=== PATIENT | female | born 1990 | race Caucasian/White ===

== ENCOUNTER 2017-09-28 19:02 | Emergency (ER) | payer MEDICAID ==
[~2017-09-28] VITALS: Ht 157.5 cm; Wt 47.7 kg
[~2017-09-28 19:02] MED LIST: ALBU6.7H INH; AZIT250T PO; BACK1EAC9; CEPH-571 PO; CLIN-79 PO; CLIN-80 PO; CYCL-1 PO; HYDR-569 PO; LIDO20SO PO; METH4TAB3 PO; METH500T PO; NAPR-1144 PO; NAPR-1154 PO; NO HOME MEDS; PHEN-824 PO; SILV20CR13 TP; [UNRECOGNIZED DRUG - CODE] PO
[2017-09-28 19:11] VITALS: BP 112/54
== END 2017-09-28 20:23 | disposition home or self-care (01) ==
LOC: ER 19:02
DX: K08.89 Other specified disorders of teeth and supporting structures (principal); G89.29 Other chronic pain; F12.10 Cannabis abuse, uncomplicated; Z88.0 Allergy status to penicillin; Z79.899 Other long term (current) drug therapy
CPT/HCPCS: 99281

== ENCOUNTER 2017-10-27 18:01 | Emergency (ER) | payer MEDICAID ==
[~2017-10-27] VITALS: Ht 157.5 cm; Wt 43.5 kg
[~2017-10-27 18:01] MED LIST changes: +NITR100C6 PO; +ONDA8TAB9 PO
[2017-10-27 18:46] VITALS: BP 153/58
[2017-10-27 19:06] LABS: BASOPHILS % (AUTO) 0.4 % (0-1); EOSINOPHILS # (AUTO) 0.2 X10'3 (0-0.9); EOSINOPHILS % (AUTO) 2.4 % (0-6); HEMATOCRIT 36.7 % (35.0-45.0); HEMOGLOBIN 12.5 g/dl (12.0-16.0); LYMPHOCYTES # (AUTO) 3.5 X10'3 (1.1-4.8); LYMPHOCYTES % (AUTO) 36.6 % (21-51); MEAN CORPUSCULAR HEMOGLOBIN 30.6 PG (27.0-31.0); MEAN CORPUSCULAR VOLUME 89.9 FL (78-98); MONOCYTES # (AUTO) 0.6 X10'3 (0-0.9); NEUTROPHILS # (AUTO) 5.2 X10'3 (1.8-7.7); NEUTROPHILS % (AUTO) 54.6 % (42-75); PLATELET COUNT 265 X10'3 (140-440); RED BLOOD COUNT 4.09 X10'6 (4.20-5.60); WHITE BLOOD COUNT 9.5 X10'3 (4.5-11.0)
[2017-10-27 19:11] LABS: CLARITY,URINE SLIGHTLY CLOUDY (Clear); COLOR,URINE YELLOW (Yellow); GLUCOSE, URINE NEGATIVE (Neg); KETONES,URINE NEGATIVE (Neg); LEUKOCYTE ESTERASE ,URINE NEGATIVE (Neg); NITRITES, URINE NEGATIVE (Neg); OCCULT BLOOD,URINE NEGATIVE (Neg); PH,URINE 7.5 (4.8-8.0); PROTEIN,URINE NEGATIVE (Neg); UROBILINOGEN,URINE 0.2 E.U/dL (0.2-1.0)
[2017-10-27 19:17] LABS: PROTHROMBIN TIME 10.7 SECONDS (9.0-12.0)
[2017-10-27 19:19] LABS: URINE HCG NEGATIVE (NEG)
[2017-10-27 19:29] LABS: UA COLLECTION TYPE CLN CATCH MIDSTREAM
[2017-10-27 19:31] LABS: AMORPHOUS PHOSPHATES 2+; BACTERIA,URINE NONE SEEN /HPF (Neg); RBC,URINE NONE SEEN /HPF (0-2); SQUAMOUS EPITHELIAL CELL,UR NONE SEEN /LPF (FEW); WBC,URINE NONE SEEN /HPF (0-4)
[2017-10-27 19:31] LABS: ALANINE AMINOTRANSFERASE 21 U/L (12-78); ALBUMIN/GLOBULIN RATIO 1.2 (1.1-1.5); ALKALINE PHOSPHATASE 43 IU/L (46-116); ANION GAP 8 (8-16); ASPARTATE AMINO TRANSFERASE 13 U/L (10-37); BILIRUBIN,TOTAL 0.2 MG/DL (0.1-1.0); BLOOD UREA NITROGEN 12 MG/DL (7-18); BUN/CREATININE RATIO 21.1 (6.6-38.0); CALCIUM 9.2 MG/DL (8.5-10.1); CHLORIDE 104 MMOL/L (99-107); CREATININE 0.57 MG/DL (0.40-0.90); GLUCOSE 91 MG/DL (70-104); LIPASE 214 U/L (73-393); SODIUM 139 MMOL/L (135-145); TOTAL CARBON DIOXIDE 26.8 MMOL/L (24-32); TOTAL PROTEIN 7.3 G/DL (6.4-8.2); eGFR > 90 ML/MIN
== END 2017-10-27 20:11 | disposition left against medical advice (07) ==
LOC: ER 18:01
DX: R10.9 Unspecified abdominal pain (principal); R11.10 Vomiting, unspecified; Z53.21 Procedure and treatment not carried out due to patient leaving prior to being seen by health care provider
CPT/HCPCS: 36415; 80053; 81001; 81025; 83690; 85025; 85610; 99281

== ENCOUNTER 2018-01-10 15:00 | Emergency (ER) | payer MEDICAID ==
[~2018-01-10] VITALS: Ht 160 cm; Wt 46.1 kg
[~2018-01-10 15:00] MED LIST changes: -CLIN-79 PO; -CLIN-80 PO; +CLIN150C8 PO; +CLIN300C85 PO
[2018-01-10 15:08] VITALS: BP 131/78
[2018-01-10] MEDS ORDERED: ACET-2615 PO (15:23)
[2018-01-10] MEDS ORDERED: GABA800T2 PO (15:23)
== END 2018-01-10 15:36 | disposition home or self-care (01) ==
LOC: ER 15:03
DX: G89.29 Other chronic pain (principal); F12.90 Cannabis use, unspecified, uncomplicated; Z76.0 Encounter for issue of repeat prescription; Z98.890 Other specified postprocedural states; Z88.0 Allergy status to penicillin; Z79.2 Long term (current) use of antibiotics; Z79.899 Other long term (current) drug therapy
CPT/HCPCS: 99283

== ENCOUNTER 2018-01-27 14:07 | Emergency (ER) | payer MEDICAID ==
[~2018-01-27] VITALS: Ht 552.4 cm; Wt 48.0 kg
[~2018-01-27 14:07] MED LIST changes: +ACET-2615 PO; +GABA800T2 PO
[2018-01-27] MEDS ORDERED: HYDROcodone/acetaminophen 5mg/325mg tablet PO ONE (14:15)
[2018-01-27] MEDS ORDERED: CEPH-571 PO (14:15)
[2018-01-27 14:23] VITALS: BP 135/84
== END 2018-01-27 14:25 | disposition home or self-care (01) ==
LOC: ER 14:07
DX: S02.5XXA Fracture of tooth (traumatic), initial encounter for closed fracture (principal); G89.29 Other chronic pain; F12.90 Cannabis use, unspecified, uncomplicated; Z88.0 Allergy status to penicillin; Z79.899 Other long term (current) drug therapy; X58.XXXA Exposure to other specified factors, initial encounter; Y93.89 Activity, other specified; Y92.89 Other specified places as the place of occurrence of the external cause; Y99.8 Other external cause status
CPT/HCPCS: 99283

== ENCOUNTER 2018-03-25 15:22 | Emergency (ER) | payer MEDICAID ==
[~2018-03-25] VITALS: Ht 157.5 cm; Wt 48.0 kg
[~2018-03-25 15:22] MED LIST changes: -ACET-2615 PO; +HYDR-4383 PO; -HYDR-569 PO
[2018-03-25 15:27] VITALS: BP 125/76
[2018-03-25] MEDS ORDERED: HYDR-4353 PO (16:10)
== END 2018-03-25 16:32 | disposition home or self-care (01) ==
LOC: ER 15:23
DX: K08.89 Other specified disorders of teeth and supporting structures (principal); R22.9 Localized swelling, mass and lump, unspecified; G89.29 Other chronic pain; F41.9 Anxiety disorder, unspecified; F12.10 Cannabis abuse, uncomplicated; Z87.440 Personal history of urinary (tract) infections; Z88.0 Allergy status to penicillin; Z79.899 Other long term (current) drug therapy
CPT/HCPCS: 99283

== ENCOUNTER 2018-06-08 15:21 | Emergency (ER) | payer MEDICAID, OTHER ==
[~2018-06-08] VITALS: Ht 157.5 cm; Wt 51.1 kg
[~2018-06-08 15:21] MED LIST changes: -GABA800T2 PO; +GABA800T3 PO
[2018-06-08 15:35] VITALS: BP 121/85
[2018-06-08] MEDS ORDERED: HYDR-4383 PO (15:53)
[2018-06-08] MEDS ORDERED: CLIN150C2 PO (15:53)
--- NOTE | 2018-06-08 16:13 | NUR ---
seen and dc'd by provider
== END 2018-06-08 16:14 | disposition home or self-care (01) ==
LOC: ER 15:21
DX: S02.5XXA Fracture of tooth (traumatic), initial encounter for closed fracture (principal); F41.9 Anxiety disorder, unspecified; G89.29 Other chronic pain; F12.10 Cannabis abuse, uncomplicated; Z87.440 Personal history of urinary (tract) infections; Z88.0 Allergy status to penicillin; Z79.2 Long term (current) use of antibiotics; X58.XXXA Exposure to other specified factors, initial encounter; Y93.89 Activity, other specified; Y92.89 Other specified places as the place of occurrence of the external cause; Y99.8 Other external cause status
CPT/HCPCS: 99283

== ENCOUNTER 2019-03-15 18:02 | Emergency (ER) | payer MEDICAID ==
[~2019-03-15] VITALS: Ht 160 cm; Wt 59.0 kg
[~2019-03-15 18:02] MED LIST changes: -ALBU6.7H INH; +ALBU6.7H9 INH; +CLIN-90 PO; -CLIN300C85 PO; +GABA800T11 PO; -GABA800T3 PO
[2019-03-15 18:32] LABS: CLARITY,URINE CLEAR (Clear); COLOR,URINE STRAW (Yellow); GLUCOSE, URINE NEGATIVE (Neg); KETONES,URINE NEGATIVE (Neg); LEUKOCYTE ESTERASE ,URINE NEGATIVE (Neg); NITRITES, URINE NEGATIVE (Neg); OCCULT BLOOD,URINE NEGATIVE (Neg); PROTEIN,URINE NEGATIVE (Neg); UROBILINOGEN,URINE 0.2 E.U/dL (0.2-1.0)
[2019-03-15 18:34] LABS: UA COLLECTION TYPE CLN CATCH MIDSTREAM; URINE HCG NEGATIVE (NEG)
[2019-03-15 18:39] LABS: BASOPHILS # (AUTO) 0.1 X10'3 (0-0.2); BASOPHILS % (AUTO) 0.8 % (0-1); EOSINOPHILS # (AUTO) 0.2 X10'3 (0-0.9); EOSINOPHILS % (AUTO) 2.4 % (0-6); HEMATOCRIT 38.4 % (35.0-45.0); HEMOGLOBIN 13.1 g/dl (12.0-16.0); LYMPHOCYTES # (AUTO) 2.2 X10'3 (1.1-4.8); MEAN CORPUSCULAR HEMOGLOBIN 30.5 PG (27.0-31.0); MEAN CORPUSCULAR VOLUME 89.7 FL (78-98); MEAN PLATELET VOLUME 8.5 FL (7.4-10.4); MONOCYTES # (AUTO) 0.4 X10'3 (0-0.9); MONOCYTES % (AUTO) 5.4 % (2-12); NEUTROPHILS # (AUTO) 5.3 X10'3 (1.8-7.7); NEUTROPHILS % (AUTO) 64.4 % (42-75); PLATELET COUNT 255 X10'3 (140-440); RED BLOOD COUNT 4.29 X10'6 (4.20-5.60); RED CELL DISTRIBUTION WIDTH 12.8 % (11.5-14.5); WHITE BLOOD COUNT 8.3 X10'3 (4.5-11.0)
[2019-03-15 18:55] LABS: ALANINE AMINOTRANSFERASE 21 U/L (12-78); ALBUMIN 3.9 G/DL (3.4-5.0); ALBUMIN/GLOBULIN RATIO 1.1 (1.1-1.5); ALKALINE PHOSPHATASE 57 IU/L (46-116); ANION GAP 9 (8-16); ASPARTATE AMINO TRANSFERASE 15 U/L (10-37); BILIRUBIN,TOTAL 0.2 MG/DL (0.1-1.0); BLOOD UREA NITROGEN 14 MG/DL (7-18); BUN/CREATININE RATIO 19.7 (6.6-38.0); CHLORIDE 107 MMOL/L (99-107); CREATININE 0.71 MG/DL (0.40-0.90); GLUCOSE 91 MG/DL (70-104); POTASSIUM 3.9 MMOL/L (3.5-5.1); SODIUM 143 MMOL/L (135-145); TOTAL CARBON DIOXIDE 26.8 MMOL/L (24-32); TOTAL PROTEIN 7.5 G/DL (6.4-8.2); eGFR > 90 ML/MIN
[2019-03-15] MEDS ORDERED: ketorolac trometh inj. 60 MG/2 ML VIAL IM ONE (20:15)
[2019-03-15] MEDS ORDERED: CYCL-1 PO (20:24)
--- NOTE | 2019-03-15 20:50 | NUR ---
PT HAS MEDS ORDERED THEN DC. PT WITH MANY QUESTIONS ABOUT THE FLEXERIL PERSCRIPTION AND TORADOL INJECTION THAT IS ORDERED. PT WILL NEED TO SPEAK WITH PROVIDER PRIOR TO GETTING THE ORDERED MEDS. Anayeli SHELTON UPDATED AND WILL SEE HER SHORTLY.
--- NOTE | 2019-03-15 20:59 | NUR ---
ATTEMPTED TO GIVE PATIENT HER TORADOL INSTRUCTIONS IN REGARDS TO HER LUMBAR STRAIN . PT VERY DEMANDING NOT LISTEN TO THE USES AND EXPLANATIONS OF THE MEDICATION. PT ASKING IOF THE MEDICATION COULD BE USED WHILE SHE WORKS OUT AND GOES TO [employer]. PT OVERTALKING THE EXPLANATIONS OF COPMMOM USES THE TIME OF DAY WHEN THE MEDICINE SHOUILD BE TAKEN , ETC. SHOWED THE PATIENT THE DISCHARGED INSTRUCTIONS AND THE WRITTEN INFORMATION ON THE PRESCRIPTION OF FLEXERIL SHE WAS BEING DISCHARGED HOME ON . PT ASKED TO SPEAK TO ABEL TORRES " YOU ARE NOT CREDITABLE AND YOU WILL NOT ANSWER MY QUESTION " ABEL TORRES TO SPEAK WITH PT REGARDING THE MEDICAINE. PT DECLINED THE TORADOL SHOT AND STATED SHE WILL FILL HER SCRIPT AND REST AT HOME .
[2019-03-15 21:04] VITALS: BP 128/72
== END 2019-03-15 20:55 | disposition home or self-care (01) ==
LOC: ER 18:03
DX: S39.012A Strain of muscle, fascia and tendon of lower back, initial encounter (principal); M62.830 Muscle spasm of back; G89.29 Other chronic pain; F12.90 Cannabis use, unspecified, uncomplicated; Z98.890 Other specified postprocedural states; Z88.0 Allergy status to penicillin; Z79.899 Other long term (current) drug therapy; X50.1XXA Overexertion from prolonged static or awkward postures, initial encounter; Y93.89 Activity, other specified; Y92.89 Other specified places as the place of occurrence of the external cause; Y99.9 Unspecified external cause status
CPT/HCPCS: 36415; 80053; 81003; 81025; 85025; 99283; J1885

== ENCOUNTER 2019-04-18 15:18 | Emergency (ER) | payer MEDICAID ==
[~2019-04-18] VITALS: Ht 160 cm; Wt 54.0 kg
[2019-04-18 15:32] VITALS: BP 128/60
[2019-04-18] MEDS ORDERED: TRAM50TA2 PO (16:56)
[2019-04-18] MEDS ORDERED: HYDR-4383 PO (17:14)
[2019-04-18] MEDS ORDERED: IBUP-1984 PO (17:14)
== END 2019-04-18 17:23 | disposition home or self-care (01) ==
LOC: ER 15:18
DX: S02.5XXA Fracture of tooth (traumatic), initial encounter for closed fracture (principal); G89.29 Other chronic pain; F41.9 Anxiety disorder, unspecified; F15.90 Other stimulant use, unspecified, uncomplicated; Z88.0 Allergy status to penicillin; Z88.6 Allergy status to analgesic agent; Z79.2 Long term (current) use of antibiotics; Z79.899 Other long term (current) drug therapy; Z87.19 Personal history of other diseases of the digestive system; Z87.440 Personal history of urinary (tract) infections; Z98.890 Other specified postprocedural states; X58.XXXA Exposure to other specified factors, initial encounter; Y93.89 Activity, other specified; Y92.89 Other specified places as the place of occurrence of the external cause; Y99.8 Other external cause status
CPT/HCPCS: 99283

== ENCOUNTER 2019-06-14 14:10 | Emergency (ER) | payer MEDICAID, OTHER ==
[~2019-06-14] VITALS: Ht 157.5 cm; Wt 50.5 kg
[2019-06-14 14:22] VITALS: BP 122/77
[2019-06-14] MEDS ORDERED: ketorolac trometh inj. 60 MG/2 ML VIAL IM ONE (15:00)
[2019-06-14] MEDS ORDERED: IBUP-1985 PO (15:03)
[2019-06-14] MEDS ORDERED: ondansetron 4mg rapidly disintigrating tab PO ONE (15:10)
[2019-06-14] MEDS ORDERED: HYDROcodone/acetaminophen 5mg/325mg tablet PO ONE (15:10)
== END 2019-06-14 15:33 | disposition home or self-care (01) ==
LOC: ER 14:11
DX: S59.902A Unspecified injury of left elbow, initial encounter (principal); F12.90 Cannabis use, unspecified, uncomplicated; G89.29 Other chronic pain; Z98.890 Other specified postprocedural states; Z79.899 Other long term (current) drug therapy; Z88.0 Allergy status to penicillin; Z88.6 Allergy status to analgesic agent; Z88.8 Allergy status to other drugs, medicaments and biological substances; W01.0XXA Fall on same level from slipping, tripping and stumbling without subsequent striking against object, initial encounter; Y93.89 Activity, other specified; Y92.89 Other specified places as the place of occurrence of the external cause; Y99.9 Unspecified external cause status
CPT/HCPCS: 73080; 99283

== ENCOUNTER 2019-06-20 09:31 | Emergency (ER) | payer OTHER ==
[~2019-06-20] VITALS: Ht 157.5 cm; Wt 49.0 kg
[~2019-06-20 09:31] MED LIST changes: +IBUP-1985 PO
[2019-06-20] MEDS ORDERED: HYDROcodone/acetaminophen 5mg/325mg tablet PO ONE (10:15)
[2019-06-20] MEDS ORDERED: CHLO473M3 PO (10:23)
[2019-06-20] MEDS ORDERED: CLIN150C2 PO (10:23)
[2019-06-20] MEDS ORDERED: L. R1CAP4 PO (10:23)
[2019-06-20] MEDS ORDERED: ondansetron 4mg rapidly disintigrating tab PO ONE (10:25)
[2019-06-20 10:33] VITALS: BP 115/82
== END 2019-06-20 10:35 | disposition home or self-care (01) ==
LOC: ER 09:32
DX: K08.89 Other specified disorders of teeth and supporting structures (principal); R19.6 Halitosis; G89.29 Other chronic pain; F12.90 Cannabis use, unspecified, uncomplicated; Z98.890 Other specified postprocedural states; Z88.0 Allergy status to penicillin; Z88.6 Allergy status to analgesic agent; Z79.899 Other long term (current) drug therapy
CPT/HCPCS: 99283

== ENCOUNTER 2019-11-03 10:42 | Emergency (ER) | payer OTHER ==
[~2019-11-03] VITALS: Ht 157.5 cm; Wt 45.0 kg
[~2019-11-03 10:42] MED LIST changes: +CHLO473M3 PO; -CLIN-90 PO; +CLIN-97 PO; +L. R1CAP4 PO
[2019-11-03 11:23] LABS: BASOPHILS % (AUTO) 0.3 % (0-1); EOSINOPHILS % (AUTO) 0.1 % (0-6); HEMATOCRIT 41.4 % (35.0-45.0); HEMOGLOBIN 13.8 g/dl (12.0-16.0); LYMPHOCYTES # (AUTO) 1.1 X10'3 (1.1-4.8); LYMPHOCYTES % (AUTO) 10.4 % (21-51); MEAN CORPUSCULAR HEMOGLOBIN 29.8 PG (27.0-31.0); MEAN CORPUSCULAR HGB CONC 33.2 g/dL (33.0-36.5); MEAN CORPUSCULAR VOLUME 89.7 FL (78-98); MEAN PLATELET VOLUME 8.4 FL (7.4-10.4); MONOCYTES # (AUTO) 0.2 X10'3 (0-0.9); MONOCYTES % (AUTO) 1.9 % (2-12); NEUTROPHILS # (AUTO) 8.9 X10'3 (1.8-7.7); NEUTROPHILS % (AUTO) 87.3 % (42-75); PLATELET COUNT 295 X10'3 (140-440); RED BLOOD COUNT 4.62 X10'6 (4.20-5.60); WHITE BLOOD COUNT 10.2 X10'3 (4.5-11.0)
[2019-11-03] MEDS ORDERED: normal saline 1000ml 1,000 ML IV ONE (11:25)
[2019-11-03 11:42] LABS: ALANINE AMINOTRANSFERASE 22 U/L (12-78); ALBUMIN 4.2 G/DL (3.4-5.0); ALBUMIN/GLOBULIN RATIO 1.3 (1.1-1.5); ALKALINE PHOSPHATASE 49 IU/L (46-116); ANION GAP 12 (8-16); ASPARTATE AMINO TRANSFERASE 16 U/L (10-37); BILIRUBIN,TOTAL 0.6 MG/DL (0.1-1.0); BLOOD UREA NITROGEN 12 MG/DL (7-18); BUN/CREATININE RATIO 16.7 (6.6-38.0); CHLORIDE 106 MMOL/L (99-107); CREATININE 0.72 MG/DL (0.40-0.90); GLUCOSE 128 MG/DL (70-104); LIPASE 71 U/L (73-393); POTASSIUM 3.9 MMOL/L (3.5-5.1); SODIUM 141 MMOL/L (135-145); TOTAL CARBON DIOXIDE 23.4 MMOL/L (24-32); TOTAL PROTEIN 7.5 G/DL (6.4-8.2); eGFR > 90 ML/MIN
[2019-11-03] MEDS ORDERED: haloperidol lactate 5mg/ml inj IM ONE (11:45)
[2019-11-03] MEDS ORDERED: diphenhydrAMINE 50 mg/ml inj IV ONE (11:45)
[2019-11-03] MEDS ORDERED: LORazepam 2 mg/ml vial IV ONE (11:45)
[2019-11-03] MEDS ORDERED: ondansetron/PF 4mg/2ml inj IV ONE (11:45)
[2019-11-03 13:11] LABS: CLARITY,URINE CLOUDY (Clear); COLOR,URINE YELLOW (Yellow); GLUCOSE, URINE NEGATIVE (Neg); KETONES,URINE 40 mg/dl (Neg); LEUKOCYTE ESTERASE ,URINE NEGATIVE (Neg); NITRITES, URINE NEGATIVE (Neg); OCCULT BLOOD,URINE TRACE-INTACT (Neg); PH,URINE 6.5 (4.8-8.0); PROTEIN,URINE 100 mg/dl (Neg); UROBILINOGEN,URINE 0.2 E.U/dL (0.2-1.0)
[2019-11-03 13:12] LABS: URINE HCG NEGATIVE (NEG)
[2019-11-03 13:13] LABS: UA COLLECTION TYPE CLN CATCH MIDSTREAM
[2019-11-03 13:16] LABS: MUCUS STRANDS MANY /LPF (Neg); SQUAMOUS EPITHELIAL CELL,UR MANY /LPF (FEW)
[2019-11-03 13:17] LABS: BACTERIA,URINE 1+ /HPF (Neg); RBC,URINE 0-2 /HPF (0-2); WBC,URINE 0-4 /HPF (0-4)
[2019-11-03 14:26] VITALS: BP 106/61
== END 2019-11-03 14:29 | disposition home or self-care (01) ==
LOC: ER 10:43
DX: R11.15 Cyclical vomiting syndrome unrelated to migraine (principal); R10.84 Generalized abdominal pain; R11.2 Nausea with vomiting, unspecified; G89.29 Other chronic pain; F41.9 Anxiety disorder, unspecified; F12.90 Cannabis use, unspecified, uncomplicated; Z87.440 Personal history of urinary (tract) infections; Z79.899 Other long term (current) drug therapy; Z88.6 Allergy status to analgesic agent; Z88.0 Allergy status to penicillin; Z79.2 Long term (current) use of antibiotics
CPT/HCPCS: 36415; 80053; 81001; 81025; 83690; 85025; 96361; 96372; 96374; 96375; 99284; J1200; J1630; J2060; J2405; J7030

== ENCOUNTER 2019-11-27 19:22 | Emergency (ER) | payer OTHER ==
[~2019-11-27] VITALS: Ht 154.9 cm; Wt 50.0 kg
[2019-11-27 19:26] VITALS: BP 132/81
[2019-11-27 20:20] LABS: BASOPHILS # (AUTO) 0.1 X10'3 (0-0.2); BASOPHILS % (AUTO) 0.6 % (0-1); EOSINOPHILS % (AUTO) 0.3 % (0-6); HEMATOCRIT 40.6 % (35.0-45.0); HEMOGLOBIN 13.8 g/dl (12.0-16.0); LYMPHOCYTES # (AUTO) 2.6 X10'3 (1.1-4.8); LYMPHOCYTES % (AUTO) 25.8 % (21-51); MEAN CORPUSCULAR HEMOGLOBIN 30.8 PG (27.0-31.0); MEAN CORPUSCULAR VOLUME 90.6 FL (78-98); MEAN PLATELET VOLUME 8.6 FL (7.4-10.4); MONOCYTES # (AUTO) 0.8 X10'3 (0-0.9); MONOCYTES % (AUTO) 7.9 % (2-12); NEUTROPHILS # (AUTO) 6.6 X10'3 (1.8-7.7); NEUTROPHILS % (AUTO) 65.4 % (42-75); PLATELET COUNT 291 X10'3 (140-440); RED BLOOD COUNT 4.48 X10'6 (4.20-5.60); RED CELL DISTRIBUTION WIDTH 13.8 % (11.5-14.5); WHITE BLOOD COUNT 10.2 X10'3 (4.5-11.0)
[2019-11-27 20:20] LABS: URINE HCG NEGATIVE (NEG)
[2019-11-27 20:28] LABS: ALANINE AMINOTRANSFERASE 23 U/L (12-78); ALBUMIN 4.1 G/DL (3.4-5.0); ALBUMIN/GLOBULIN RATIO 1.1 (1.1-1.5); ALKALINE PHOSPHATASE 59 IU/L (46-116); ANION GAP 10 (8-16); ASPARTATE AMINO TRANSFERASE 12 U/L (10-37); BILIRUBIN,TOTAL 0.5 MG/DL (0.1-1.0); BLOOD UREA NITROGEN 14 MG/DL (7-18); BUN/CREATININE RATIO 13.2 (6.6-38.0); CALCIUM 9.2 MG/DL (8.5-10.1); CHLORIDE 106 MMOL/L (99-107); CREATININE 1.06 MG/DL (0.40-0.90); GLUCOSE 107 MG/DL (70-104); LIPASE 407 U/L (73-393); SODIUM 142 MMOL/L (135-145); TOTAL CARBON DIOXIDE 25.9 MMOL/L (24-32); TOTAL PROTEIN 7.7 G/DL (6.4-8.2); eGFR 60 ML/MIN
[2019-11-27 20:34] LABS: CLARITY,URINE SLIGHTLY CLOUDY (Clear); COLOR,URINE YELLOW (Yellow); GLUCOSE, URINE NEGATIVE (Neg); KETONES,URINE NEGATIVE (Neg); LEUKOCYTE ESTERASE ,URINE NEGATIVE (Neg); NITRITES, URINE POSITIVE (Neg); OCCULT BLOOD,URINE NEGATIVE (Neg); PH,URINE 6.5 (4.8-8.0); PROTEIN,URINE TRACE mg/dl (Neg)
[2019-11-27 20:37] LABS: UA COLLECTION TYPE CLN CATCH MIDSTREAM
[2019-11-27 22:04] LABS: BACTERIA,URINE 4+ /HPF (Neg); MUCUS STRANDS MANY /LPF (Neg); RBC,URINE NONE SEEN /HPF (0-2); SQUAMOUS EPITHELIAL CELL,UR FEW /LPF (FEW); WBC,URINE 0-4 /HPF (0-4)
== END 2019-11-27 20:20 | disposition left against medical advice (07) ==
LOC: ER 19:24
DX: R10.9 Unspecified abdominal pain (principal); R11.10 Vomiting, unspecified; Z53.21 Procedure and treatment not carried out due to patient leaving prior to being seen by health care provider
CPT/HCPCS: 36415; 80053; 81001; 81025; 83690; 85025; 87077; 87088; 87186

== ENCOUNTER 2020-06-08 21:56 | Emergency (ER) | payer OTHER ==
[~2020-06-08] VITALS: Ht 157.5 cm; Wt 52.3 kg
[2020-06-08 22:41] LABS: CLARITY,URINE CLEAR (Clear); COLOR,URINE YELLOW (Yellow); GLUCOSE, URINE NEGATIVE (Neg); KETONES,URINE NEGATIVE (Neg); LEUKOCYTE ESTERASE ,URINE NEGATIVE (Neg); NITRITES, URINE NEGATIVE (Neg); OCCULT BLOOD,URINE NEGATIVE (Neg); PROTEIN,URINE NEGATIVE (Neg); URINE HCG NEGATIVE (NEG); UROBILINOGEN,URINE 0.2 E.U/dL (0.2-1.0)
[2020-06-08 22:42] LABS: BASOPHILS # (AUTO) 0.1 X10'3 (0-0.2); BASOPHILS % (AUTO) 0.7 % (0-1); EOSINOPHILS # (AUTO) 0.1 X10'3 (0-0.9); EOSINOPHILS % (AUTO) 0.7 % (0-6); HEMATOCRIT 38.1 % (35.0-45.0); HEMOGLOBIN 12.9 g/dl (12.0-16.0); LYMPHOCYTES # (AUTO) 4.2 X10'3 (1.1-4.8); LYMPHOCYTES % (AUTO) 35.3 % (21-51); MEAN CORPUSCULAR HEMOGLOBIN 30.7 PG (27.0-31.0); MEAN CORPUSCULAR HGB CONC 33.8 g/dL (33.0-36.5); MEAN CORPUSCULAR VOLUME 90.9 FL (78-98); MEAN PLATELET VOLUME 8.1 FL (7.4-10.4); MONOCYTES # (AUTO) 0.7 X10'3 (0-0.9); MONOCYTES % (AUTO) 5.5 % (2-12); NEUTROPHILS # (AUTO) 6.8 X10'3 (1.8-7.7); NEUTROPHILS % (AUTO) 57.8 % (42-75); PLATELET COUNT 298 X10'3 (140-440); RED CELL DISTRIBUTION WIDTH 12.8 % (11.5-14.5); WHITE BLOOD COUNT 11.8 X10'3 (4.5-11.0)
[2020-06-08 22:42] LABS: UA COLLECTION TYPE CLN CATCH MIDSTREAM
[2020-06-08 22:59] LABS: ALANINE AMINOTRANSFERASE 16 U/L (12-78); ALBUMIN 3.9 G/DL (3.4-5.0); ALBUMIN/GLOBULIN RATIO 1.1 (1.1-1.5); ALKALINE PHOSPHATASE 51 IU/L (46-116); ANION GAP 7 (8-16); ASPARTATE AMINO TRANSFERASE 8 U/L (10-37); BILIRUBIN,TOTAL 0.3 MG/DL (0.1-1.0); BLOOD UREA NITROGEN 11 MG/DL (7-18); BUN/CREATININE RATIO 13.6 (6.6-38.0); CHLORIDE 108 MMOL/L (99-107); CREATININE 0.81 MG/DL (0.40-0.90); GLUCOSE 95 MG/DL (70-104); LIPASE 200 U/L (73-393); POTASSIUM 3.9 MMOL/L (3.5-5.1); SODIUM 142 MMOL/L (135-145); TOTAL CARBON DIOXIDE 27.1 MMOL/L (24-32); TOTAL PROTEIN 7.3 G/DL (6.4-8.2); eGFR 82 ML/MIN
[2020-06-08] MEDS ORDERED: ondansetron/PF 4mg/2ml inj IV ONE (23:15)
[2020-06-08] MEDS ORDERED: normal saline 1000ML IV soln IVB ONE (23:15)
[2020-06-08] MEDS ORDERED: iohexol 300mg/ml 100ml inj. ONE (23:15)
[2020-06-08] MEDS: morphine 4 MG/ML inj SYRINge IV PRN (23:21)
[2020-06-09] MEDS: morphine 4 MG/ML inj SYRINge IV PRN (01:33)
[2020-06-09 01:50] VITALS: BP 119/81
== END 2020-06-09 01:59 | disposition home or self-care (01) ==
LOC: ER 21:57
DX: R10.31 Right lower quadrant pain (principal); R11.0 Nausea; R19.7 Diarrhea, unspecified; R30.9 Painful micturition, unspecified; G89.29 Other chronic pain; F12.90 Cannabis use, unspecified, uncomplicated; F41.9 Anxiety disorder, unspecified; Z87.440 Personal history of urinary (tract) infections; Z98.890 Other specified postprocedural states; Z88.0 Allergy status to penicillin; Z88.6 Allergy status to analgesic agent; Z79.2 Long term (current) use of antibiotics; Z79.899 Other long term (current) drug therapy
CPT/HCPCS: 36415; 74177; 80053; 81003; 81025; 83690; 85025; 96361; 96374; 96375; 96376; 99285; J2270; J2405; J7030; Q9967

== ENCOUNTER 2020-08-10 23:22 | Emergency (ER) | payer MEDICAID, OTHER ==
[~2020-08-10] VITALS: Ht 157.5 cm; Wt 54.5 kg
[2020-08-10 23:33] VITALS: BP 125/79
== END 2020-08-11 00:05 | disposition home or self-care (01) ==
LOC: ER 23:24
DX: M25.562 Pain in left knee (principal); M25.561 Pain in right knee; G89.29 Other chronic pain; F41.9 Anxiety disorder, unspecified; F12.90 Cannabis use, unspecified, uncomplicated; Z87.440 Personal history of urinary (tract) infections; Z98.890 Other specified postprocedural states; Z88.0 Allergy status to penicillin; Z88.6 Allergy status to analgesic agent; Z79.2 Long term (current) use of antibiotics; Z79.899 Other long term (current) drug therapy
CPT/HCPCS: 99284

== ENCOUNTER 2021-01-26 20:14 | Emergency (ER) | payer MEDICAID ==
[~2021-01-26] VITALS: Ht 157.5 cm; Wt 54.5 kg
[2021-01-26 20:16] VITALS: BP 98/60
[2021-01-26] MEDS ORDERED: LIDOcaine 1% 30ml preserv. free vial IJ ONE (22:10)
--- NOTE | 2021-01-26 22:32 | NUR ---
Report given to NANCY Reilly.
[2021-01-26] MEDS ORDERED: SULF1TAB49 PO (22:49)
== END 2021-01-26 23:14 | disposition home or self-care (01) ==
LOC: ER 20:15
DX: S60.464A Insect bite (nonvenomous) of right ring finger, initial encounter (principal); F41.9 Anxiety disorder, unspecified; F12.10 Cannabis abuse, uncomplicated; Z88.0 Allergy status to penicillin; Z88.6 Allergy status to analgesic agent; Z79.899 Other long term (current) drug therapy
CPT/HCPCS: 10060; 99283

== ENCOUNTER 2021-06-24 12:18 | Emergency (ER) | payer MEDICAID ==
[~2021-06-24] VITALS: Ht 157.5 cm; Wt 55.0 kg
[2021-06-24 12:40] VITALS: BP 108/77
[2021-06-24] MEDS ORDERED: normal saline 1000ML IV soln IVB ONE (13:15)
[2021-06-24] MEDS ORDERED: proCHLORperazine 10 MG/2 ml inj IV ONE (13:15)
[2021-06-24] MEDS ORDERED: ketorolac trometh. 30mg/ml inj. IV ONE (13:15)
[2021-06-24] MEDS ORDERED: diphenhydrAMINE 50 mg/ml inj IV ONE (13:15)
--- NOTE | 2021-06-24 14:26 | NUR ---
Pt left the RAP area. Found IV catheter, line, and bag hanging. Line was laying on the ground next to her blankets.
== END 2021-06-24 14:29 | disposition left against medical advice (07) ==
LOC: ER 12:19
DX: U07.1 COVID-19 (principal); R51.9 Headache, unspecified; R07.89 Other chest pain; R06.02 Shortness of breath; R42 Dizziness and giddiness; G89.29 Other chronic pain; F41.9 Anxiety disorder, unspecified; F12.90 Cannabis use, unspecified, uncomplicated; Z87.440 Personal history of urinary (tract) infections; Z98.890 Other specified postprocedural states; Z88.0 Allergy status to penicillin; Z88.6 Allergy status to analgesic agent; Z79.2 Long term (current) use of antibiotics; Z79.899 Other long term (current) drug therapy
CPT/HCPCS: 96374; 96375; 99284; J0780; J1200; J1885; J7030

== ENCOUNTER 2021-07-12 05:33 | Emergency (ER) | payer MEDICAID, OTHER ==
[~2021-07-12] VITALS: Ht 157.5 cm; Wt 50.5 kg
[2021-07-12 05:38] VITALS: BP 124/59
== END 2021-07-12 07:28 | disposition home or self-care (01) ==
LOC: ER 05:34
DX: Z02.89 Encounter for other administrative examinations (principal); T76.21XA Adult sexual abuse, suspected, initial encounter; G89.29 Other chronic pain; F41.9 Anxiety disorder, unspecified; F12.90 Cannabis use, unspecified, uncomplicated; Z87.440 Personal history of urinary (tract) infections; Z98.890 Other specified postprocedural states; Z88.0 Allergy status to penicillin; Z88.6 Allergy status to analgesic agent; Z79.2 Long term (current) use of antibiotics; Z79.899 Other long term (current) drug therapy; Y08.89XA Assault by other specified means, initial encounter; Y93.89 Activity, other specified; Y92.89 Other specified places as the place of occurrence of the external cause; Y99.8 Other external cause status
CPT/HCPCS: 99281

== ENCOUNTER 2021-12-29 07:12 | Emergency (ER) | payer MEDICAID ==
[~2021-12-29] VITALS: Ht 157.5 cm; Wt 54.0 kg
--- NOTE | 2021-12-29 07:18 | NUR ---
per patient complains of abd pain and vomiting since friday. was seen at [facility] but left ama. was given fentanyl at [facility], believes this exacerbated the symptoms
[2021-12-29 07:23] VITALS: BP 97/80
[2021-12-29] MEDS ORDERED: pantoprazole 40 MG vial IV ONE (07:45)
[2021-12-29] MEDS ORDERED: normal saline 1000ML IV soln IVB ONE ×2 (07:45)
[2021-12-29] MEDS ORDERED: ondansetron/PF 4mg/2ml inj IV ONE (07:45)
[2021-12-29] MEDS ORDERED: pantoprazole 40MG/NS 100ML BAG 100 ML IV ONE (07:50)
[2021-12-29 08:34] LABS: BASOPHILS % (AUTO) 0.3 % (0-1); EOSINOPHILS % (AUTO) 0.2 % (0-6); HEMATOCRIT 36.4 % (35.0-45.0); HEMOGLOBIN 12.2 g/dl (12.0-16.0); LYMPHOCYTES % (AUTO) 14.3 % (21-51); MEAN CORPUSCULAR HEMOGLOBIN 29.7 PG (27.0-31.0); MEAN CORPUSCULAR HGB CONC 33.5 g/dL (33.0-36.5); MEAN CORPUSCULAR VOLUME 88.7 FL (78-98); MEAN PLATELET VOLUME 8.3 FL (7.4-10.4); MONOCYTES % (AUTO) 7.1 % (2-12); NEUTROPHILS # (AUTO) 10.9 X10'3 (1.8-7.7); NEUTROPHILS % (AUTO) 78.1 % (42-75); PLATELET COUNT 316 X10'3 (140-440); RED BLOOD COUNT 4.11 X10'6 (4.20-5.60); RED CELL DISTRIBUTION WIDTH 13.3 % (11.5-14.5)
[2021-12-29] MEDS ORDERED: proCHLORperazine 10 MG/2 ml inj IV ONE (08:45)
[2021-12-29] MEDS ORDERED: LORazepam 2 mg/ml vial IV ONE (08:45)
[2021-12-29] MEDS ORDERED: morphine 2 MG/ML inj. syringe IV PRN (08:45)
[2021-12-29 08:50] LABS: ALANINE AMINOTRANSFERASE 27 U/L (12-78); ALBUMIN 3.8 G/DL (3.4-5.0); ALBUMIN/GLOBULIN RATIO 1.2 (1.1-1.5); ALKALINE PHOSPHATASE 41 IU/L (46-116); ANION GAP 10 (8-16); ASPARTATE AMINO TRANSFERASE 14 U/L (10-37); BILIRUBIN,TOTAL 0.5 MG/DL (0.1-1.0); BLOOD UREA NITROGEN 13 MG/DL (7-18); BUN/CREATININE RATIO 13.8 (6.6-38.0); CALCIUM 8.3 MG/DL (8.5-10.1); CHLORIDE 107 MMOL/L (99-107); CREATININE 0.94 MG/DL (0.40-0.90); GLUCOSE 125 MG/DL (70-104); LIPASE 114 U/L (73-393); SODIUM 143 MMOL/L (135-145); eGFR 69 ML/MIN
[2021-12-29 08:54] LABS: POTASSIUM 2.9 MMOL/L (3.5-5.1)
[2021-12-29] MEDS ORDERED: potassium CL 10mEq/100ml bag 100 ML IV ONE (09:00)
--- NOTE | 2021-12-29 09:17 | NUR ---
patient still nauseas at this time. reports diarrhea as well
--- NOTE | 2021-12-29 09:54 | NUR ---
PATIENT PULLED OUT HER IV AT THIS TIMEAND RAN OUT OF THE ER
--- NOTE | 2021-12-29 10:06 | NUR ---
PT PULLED OUT HER PIV AND ELOPED AFTER RECEIVING MORPHINE AND ATIVAN. PER DR LENNON, NICK WAS CALLED AND REPORTED.
== END 2021-12-29 10:08 | disposition left against medical advice (07) ==
LOC: ER 07:12
DX: R10.9 Unspecified abdominal pain (principal); R11.10 Vomiting, unspecified; G89.29 Other chronic pain; F41.9 Anxiety disorder, unspecified; F12.10 Cannabis abuse, uncomplicated; Z88.0 Allergy status to penicillin; Z79.899 Other long term (current) drug therapy; Z88.6 Allergy status to analgesic agent
CPT/HCPCS: 36415; 71045; 80053; 83690; 85025; 96365; 96366; 96368; 96375; 99284; C9113; J0780; J2060; J2405; J3480; J7030

== ENCOUNTER 2023-02-01 17:02 | Emergency (ER) | payer MEDICAID ==
[~2023-02-01] VITALS: Ht 162.6 cm; Wt 52.7 kg
[~2023-02-01 17:02] MED LIST changes: +ALBU6.7H14 INH; -ALBU6.7H9 INH; +CLIN-214 PO; -CLIN150C8 PO
[2023-02-01 17:40] VITALS: BP 134/81; PULSE 66; TEMP 99.3; O2SAT 100
[2023-02-01] MEDS ORDERED: proparacaine 0.5% ophthalmic drops 15ml EACHEYE ONE (20:30)
[2023-02-01] MEDS ORDERED: naproxen 500mg tablet PO ONE (21:10)
[2023-02-01] MEDS ORDERED: HYDROcodone/acetaminophen 5mg/325mg tablet PO ONE (21:10)
[2023-02-01 21:16] VITALS: RESP 18
== END 2023-02-01 22:00 | disposition home or self-care (01) ==
LOC: ER 17:03
DX: T26.02XA Burn of left eyelid and periocular area, initial encounter (principal); R51.9 Headache, unspecified; G89.29 Other chronic pain; F12.90 Cannabis use, unspecified, uncomplicated; Z72.89 Other problems related to lifestyle; Z79.899 Other long term (current) drug therapy; Z79.2 Long term (current) use of antibiotics; Z88.6 Allergy status to analgesic agent; Z88.0 Allergy status to penicillin; X10.2XXA Contact with fats and cooking oils, initial encounter; Y93.G3 Activity, cooking and baking; Y92.89 Other specified places as the place of occurrence of the external cause; Y99.8 Other external cause status
CPT/HCPCS: 99283; J7040

== ENCOUNTER 2023-12-10 08:59 | Emergency (ER) | payer MEDICAID ==
[~2023-12-10] VITALS: Ht 162.6 cm; Wt 61.0 kg
[~2023-12-10 08:59] MED LIST changes: +CHLO473M13 PO; -CHLO473M3 PO
[2023-12-10 09:04] VITALS: BP 121/75; PULSE 90; RESP 18; TEMP 98.8; O2SAT 99
[2023-12-10] MEDS ORDERED: CLIN300C3 PO (10:05)
[2023-12-10] MEDS: clindamycin 150mg capsule PO ONE (10:34)
== END 2023-12-10 10:37 | disposition home or self-care (01) ==
LOC: ER 08:59
DX: K04.7 Periapical abscess without sinus (principal); K21.9 Gastro-esophageal reflux disease without esophagitis; F41.9 Anxiety disorder, unspecified; F12.90 Cannabis use, unspecified, uncomplicated; Z98.890 Other specified postprocedural states; Z88.0 Allergy status to penicillin; Z88.8 Allergy status to other drugs, medicaments and biological substances; Z79.899 Other long term (current) drug therapy; Z79.2 Long term (current) use of antibiotics
CPT/HCPCS: 99283

== ENCOUNTER 2025-01-20 10:49 | Emergency (ER) | payer MEDICAID ==
[~2025-01-20] VITALS: Ht 157.5 cm; Wt 54.5 kg
[~2025-01-20 10:49] MED LIST changes: +CLIN-224 PO; -CLIN-97 PO; +GABA-1555 PO; -GABA800T11 PO; -IBUP-1985 PO; +IBUP600T52 PO
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
[2025-01-20 11:17] LABS: MEAN PLATELET VOLUME 8.7 FL (7.4-10.4); RED CELL DISTRIBUTION WIDTH 18.9 % (11.5-14.5)
[2025-01-20 11:43] LABS: PLATELET ESTIMATE NORMAL
[2025-01-20 11:44] LABS: CREATININE 1.15 MG/DL (0.40-0.90); TOTAL CARBON DIOXIDE 20.6 MMOL/L (24-32); eCRCL 53 ML/MIN; eGFR 53 ML/MIN
[2025-01-20 11:47] LABS: ETHANOL < 10 MG/DL (<10)
--- NOTE | 2025-01-20 11:48 | RADIOLOGY REPORT ---
EXAM: CT CT HEAD INDICATION: trauma, confusion TECHNIQUE: CT of the head without intravenous contrast. Radiation Dose : 1. Head: CT Dose: CTDI volume is 51 mGy. Dose-length product is 1736 mGy*cm The dose indicators for CT are the volume Computed Tomography (CT) Dose Index (CTDIvol) and the Dose Length Product (DLP), and are measured in units of mGy and mGy-cm, respectively. These indicators are not patient dose, but values generated from the CT scanner acquisition factors. The report includes radiation exposure data for exposures received during this examination. COMPARISON: None FINDINGS: There is no evidence of acute intracranial hemorrhage, extra-axial collection, mass effect, midline s hift, herniation or hydrocephalus. The ventricles, sulci and cisterns are age appropriate. The monterroso-white differentiation is intact. The visualized paranasal sinuses and mastoid air cells are clear. The surrounding soft tissues and osseous structures are unremarkable. IMPRESSION: No acute intracranial abnormality. Radiation optimization: All CT scans at this facility use at least one of these dose optimization franci hniques: automated exposure control mA and/or kV adjustment per patient size (includes targeted exam s where dose is matched to clinical indication) or iterative reconstruction.
[2025-01-20] MEDS: ondansetron 4mg rapidly disintigrating tab PO ONE (11:56)
[2025-01-20 17:42] LABS: LEUKOCYTE ESTERASE ,URINE NEGATIVE (Neg); NITRITES, URINE NEGATIVE (Neg); OCCULT BLOOD,URINE TRACE-INTACT (Neg)
[2025-01-20 17:43] LABS: URINE HCG NEGATIVE (NEG)
[2025-01-20 17:49] LABS: UA COLLECTION TYPE CLN CATCH MIDSTREAM
[2025-01-20 17:54] LABS: AMORPHOUS URATES 1+; MUCUS STRANDS FEW /LPF (Neg); SQUAMOUS EPITHELIAL CELL,UR FEW /LPF (FEW)
[2025-01-20 17:56] LABS: URINE AMPHETAMINE SCREEN NEGATIVE (Neg); URINE BARBITUATE SCREEN NEGATIVE (Neg); URINE BENZODIAZEPINES SCREEN NEGATIVE (Neg); URINE CANNABINOID SCREEN POSITIVE (Neg); URINE COCAINE SCREEN NEGATIVE (Neg); URINE METHADONE SCREEN NEGATIVE (Neg); URINE OPIATE SCREEN NEGATIVE (Neg); URINE PHENCYCLIDINE SCREEN NEGATIVE (Neg)
[2025-01-20] MEDS: ketorolac trometh 30MG/ML vial 30 MG/ML VIAL IM ONE (18:53)
[2025-01-20] MEDS: haloperidol lactate 5mg/ml inj IM ONE (19:33)
[2025-01-20] MEDS: sulfamethoxazole/trimethoprim DS (800/160mg) tablet PO SCH (20:59)
[2025-01-21] MEDS: haloperidol lactate 5mg/ml inj IM ONE ×2 (06:52→18:42)
[2025-01-21] MEDS: diazepam inj 5 MG/ML inj. IM ONE ×2 (06:53→18:42)
[2025-01-21] MEDS: NICOTINE POLACRILEX 2 MG LOZENGE BC PRN (12:51)
[2025-01-21] MEDS: OLANZapine 5mg rapidly disint. tablet PO ONE (12:51)
[2025-01-21] MEDS ORDERED: diazepam inj 5 MG/ML inj. IV ONE (18:35)
[2025-01-22 06:00] VITALS: TEMP 98
[2025-01-22] MEDS: OLANZAPINE 5 MG TABLET PO SCH (07:58)
[2025-01-22 19:00] VITALS: BP 108/56; PULSE 60; O2SAT 98
[2025-01-23] MEDS: HYDROcodone/acetaminophen 5mg/325mg tablet PO ONE ×2 (02:47→08:09)
[2025-01-23 04:20] VITALS: RESP 16
== END 2025-01-23 10:00 | disposition home or self-care (01) ==
LOC: ER 10:49
DX: F29 Unspecified psychosis not due to a substance or known physiological condition (principal); K21.9 Gastro-esophageal reflux disease without esophagitis; F41.9 Anxiety disorder, unspecified; F12.90 Cannabis use, unspecified, uncomplicated; Z88.0 Allergy status to penicillin; Z88.5 Allergy status to narcotic agent; Z79.899 Other long term (current) drug therapy; Z20.822 Contact with and (suspected) exposure to COVID-19
CPT/HCPCS: 36415; 70450; 80048; 80305; 80320; 81001; 81025; 84443; 85008; 85025; 87088; 87811; 96372; 99285; J1200; J1630; J1885; J2060; J3360; Q0177

== ENCOUNTER 2025-02-05 01:36 | Emergency (ER) | payer MEDICAID ==
[~2025-02-05] VITALS: Ht 170.2 cm; Wt 56.9 kg
[~2025-02-05 01:36] MED LIST changes: -ALBU6.7H14 INH; -AZIT250T PO; -BACK1EAC9; -CEPH-571 PO; -CHLO473M13 PO; -CLIN-214 PO; -CLIN-224 PO; -CYCL-1 PO; -GABA-1555 PO; -HYDR-4383 PO; -IBUP600T52 PO; -L. R1CAP4 PO; -LIDO20SO PO; -METH4TAB3 PO; -METH500T PO; -NAPR-1144 PO; -NAPR-1154 PO; -NITR100C6 PO; -ONDA8TAB9 PO; -PHEN-824 PO; -SILV20CR13 TP; -[UNRECOGNIZED DRUG - CODE] PO
--- NOTE | 2025-02-05 03:29 | Physician Documentation ---
History of Present Illness ~ Chief Complaint: Anxiety Stated Complaint: ANXIETY Time Seen by MD: 03:28 Primary Medical Doctor: NIGHAT CHAUDHARY Mode of Arrival: POV HPI Patient presents to the emergency room for evaluation of anxiety. Patient is suffering from a lot of anxiety and she is dealing with it by approaching a sikh which has told her that she has edema inside her or something like that. She is working with a therapist. She denies any SI/HI. She just feel she is suffering from a lot of anxiety. Denies chest pain/shortness of breath Medication Reconciliation Allergies: Coded Allergies: Penicillins (Verified Allergy, Unknown, 01/20/25) tramadol (Verified Adverse Reaction, Severe, face gets tingly and syncopy, 01/20/25) Miscellaneous Medications Home Med List (No Home Medications), (Reported) Past Medical History Past Medical History: Diverticulitis, GERD, Peptic Ulcer Disease, UTI, Chronic Pain, Anxiety Past Surgical History: Other Past Surgical History: Left eye surgery Alcohol Use: None Drug Use: marijuana Lives with: Family Lives In: Home Occupation: employed Review of Systems ROS All review of systems negative except as per HPI Physical Exam Vital Signs: Temperature: 96.3, Source: Temporal, Heart Rate: 91, Respiratory Rate: 18, BP: 124/65, Pulse Oximetry: 98, Weight: 56.900 General Appearance General: Patient is awake, alert, oriented x4 in no acute distress Head: Normocephalic and atraumatic. Eyes: Conjunctival normal. EOMI. PERRL. ENT: Mucous membranes moist. Neck: Supple, trachea is midline. Chest: Clear to auscultation bilaterally without rales, rhonchi, or wheezes. There is no accessory muscle use or retractions. Cardiac: RRR without murmurs, gallops, or rubs. Psych: Cooperative, good eye contact, anxious Progress Results/Orders Results/Orders Orders - JUAN DE LA CRUZ MD Lorazepam Tablet (Ativan Tablet) (02/05/25 03:35) Vital Signs 02/05/25 02/05/25 01:45 02:05 Temp 96.3 Pulse 91 Resp 15 18 B/P (MAP) 124/65 Pulse Ox 98 Medical Decision Making Findings Patient presents to the emergency room as per HPI with anxiety. She is established with a therapist and states she will follow up with her therapist regarding management of her anxiety. She absolutely denies any suicidal ideation and I do not believe she is gravely disabled. Departure Disposition: HOME / SELF CARE / HOMELESS Impression: Primary Impression: Anxiety Condition: Stable Discharge Instructions: Emotional Crisis Additional Instructions: Follow up with your therapist. Return for suicidal ideation Referrals: NO PRIMARY CARE PROVIDER (PCP) Signature Scribe Signature: No scribe Attestation: The note accurately reflects work and decisions made by me.Juan De La Cruz MD 02/05/25 03:37 JUAN DE LA CRUZ MD Feb 05, 2025 03:28
[2025-02-05 03:52] VITALS: BP 122/76; PULSE 82; RESP 16; TEMP 97.5; O2SAT 98
== END 2025-02-05 03:54 | disposition home or self-care (01) ==
LOC: ER 01:37
DX: F41.9 Anxiety disorder, unspecified (principal); F12.90 Cannabis use, unspecified, uncomplicated; Z88.0 Allergy status to penicillin; Z88.5 Allergy status to narcotic agent
CPT/HCPCS: 99283

== ENCOUNTER 2025-02-20 18:04 | Emergency (ER) | payer MEDICAID ==
[~2025-02-20] VITALS: Ht 160 cm; Wt 49.1 kg
[2025-02-20 18:11] VITALS: BP 150/116; PULSE 107; RESP 18; TEMP 98.4; O2SAT 99
[2025-02-20] MEDS ORDERED: QUET25TA PO (18:18)
--- NOTE | 2025-02-20 18:18 | Physician Documentation ---
HPI ~ General Chief Complaint: Medication Request Stated Complaint: MED REQUEST Time Seen by MD: 18:12 Primary Medical Doctor: NIGHAT CHAUDHARY Source: patient Mode of Arrival: POV Exam Limitations: no limitations History of Present Illness HPI Comments 34-year-old female with medication request Seroquel prescribed at 25 mg needing 50 mg patient does have follow up with psych using it not only for sleep but for bipolar disorder with some doubts no suicidal ideations Medication Reconciliation Allergies: Coded Allergies: Penicillins (Verified Allergy, Unknown, 02/20/25) tramadol (Verified Adverse Reaction, Severe, face gets tingly and syncopy, 02/20/25) Miscellaneous Medications Home Med List (No Home Medications), (Reported) Past Medical History Past Medical History: Diverticulitis, GERD, Peptic Ulcer Disease, UTI, Chronic Pain, Anxiety Past Surgical History: Other Past Surgical History: Left eye surgery Alcohol Use: None Drug Use: marijuana Lives with: Family Lives In: Home Occupation: employed Review of Systems All Other Systems at this time: Reviewed and Negative Psychiatric: Reports: see HPI Physical Exam Physical Exam General Appearance: alert, WD/WN, no apparent distress Respiratory: lungs clear, normal breath sounds, no respiratory distress Chest: no accessory muscle use, chest non-tender Cardiovascular: normal peripheral pulses, regular rate, rhythm, no edema Medical Decision Making Findings Medication refill patient to follow up with psych and primary care Departure Time of Disposition: 18:16 Disposition: 01 HOME / SELF CARE / HOMELESS Impression: Primary Impression: General medical exam Condition: Fair Discharge Instructions: Medical Screening Exam Additional Instructions: Take medication as prescribed and follow up further treatment and evaluation Referrals: NO PRIMARY CARE PROVIDER (PCP) Prescriptions Quetiapine Fumarate (Seroquel) 25 Mg Tablet 2 TAB PO HS for 30 Days, #60 TAB Prov: TESSA FELIX NP 02/20/25 Education Educated: Patient Educated regarding: diagnosis, treatment, need for follow up Signature Scribe Signature: No scribe Attestation: The note accurately reflects work and decisions made by me.Tessa MORE 02/20/25 18:18 TESSA FELIX NP Feb 20, 2025 18:17
== END 2025-02-20 18:26 | disposition home or self-care (01) ==
LOC: ER 18:05
DX: Z00.00 Encounter for general adult medical examination without abnormal findings (principal); K21.9 Gastro-esophageal reflux disease without esophagitis; F12.90 Cannabis use, unspecified, uncomplicated; G89.29 Other chronic pain; F41.9 Anxiety disorder, unspecified; Z88.0 Allergy status to penicillin; Z88.5 Allergy status to narcotic agent; Z87.440 Personal history of urinary (tract) infections
CPT/HCPCS: 99281

== ENCOUNTER 2025-04-09 10:30 | Emergency (ER) | payer MEDICAID ==
[~2025-04-09] VITALS: Ht 160 cm; Wt 52.2 kg
--- NOTE | 2025-04-09 10:39 | Physician Documentation ---
History of Present Illness ~ Chief Complaint: Shortness of Breath Stated Complaint: SOB Time Seen by MD: 10:39 Primary Medical Doctor: NIGHAT CHAUDHARY [facility] This is a 34-year-old female who presents to the emergency department for cough and shortness of breath. She denies fevers, does endorse chills. She does not have a diagnosis of asthma, but does note that she is a former smoker, has quit for over six months. No nausea or vomiting, chest pain, abdominal pain. Medication Reconciliation Allergies: Coded Allergies: Penicillins (Verified Allergy, Unknown, 04/09/25) tramadol (Verified Adverse Reaction, Severe, face gets tingly and syncopy, 04/09/25) Miscellaneous Medications Home Med List (No Home Medications), (Reported) Past Medical History Past Medical History: Diverticulitis, GERD, Peptic Ulcer Disease, UTI, Chronic Pain, Anxiety Past Surgical History: Other Past Surgical History: Left eye surgery Alcohol Use: None Drug Use: marijuana Lives with: Family Lives In: Home Occupation: employed Review of Systems ROS As stated above in the HPI, otherwise all systems are reviewed and negative. Physical Exam Vital Signs: Temperature: 97.0, Source: Temporal, Heart Rate: 100, Respiratory Rate: 20, BP: 145/93, Pulse Oximetry: 94, Weight: 52.200 Oxygen Flow Rate: 0 Physical Exam General: Alert, no apparent distress. Neck: Full range of motion. Respiratory: Moderate wheezing throughout. Mild tachypnea. Chest: No accessory muscle use. Cardiovascular: Regular rate and rhythm, no murmurs. Gastrointestinal: Soft, nontender, nondistended. Bowels sounds present. Extremities: Normal range of motion, no deformity. Neurologic: Oriented x4. Psychiatric: Normal mood and affect. Skin: Normal color, warm and dry. No edema, no ecchymosis. Progress Results/Orders Results/Orders Orders - ZAYNAB HICKS NP Covid19 Binax Poc Result Entry (04/09/25 11:04) Svn Treatment (04/09/25 11:18) Completed Orders - ZAYNAB HICKS NP Prednisone Tablet (Prednisone Tablet) (04/09/25 11:20) Ipratropium/Albuterol Nebule (Ipratrop/A (04/09/25 11:20) Medications Received in ER Medications (Trade) Dose Ordered Sig/Ian Route PRN Reason Start Time Stop Time Status Last Admin Dose Admin (predniSONE tablet) 40 mg ONCE ONCE PO 04/09/25 11:20 04/09/25 11:21 DC 04/09/25 11:44 40 MG (ipratrop/ albuterol 0.5-3(2.5) MG/3ml nebule) 3 ml ONCE ONCE NEB 04/09/25 11:20 04/09/25 11:21 DC 04/09/25 11:34 3 ML Vital Signs 04/09/25 04/09/25 04/09/25 04/09/25 10:32 10:59 10:59 11:02 Temp 97.0 97.5 Pulse 100 80 Resp 20 21 23 B/P (MAP) 145/93 118/75 (89) Pulse Ox 94 91 94 O2 Delivery Nasal Cannula* O2 Flow Rate 0 0 2 FiO2 28 04/09/25 04/09/25 11:35 11:40 Pulse 78 72 Resp 26 14 Pulse Ox 96 95 O2 Delivery Nasal Cannula* Nasal Cannula* O2 Flow Rate 2 2 FiO2 28 28 Laboratory Tests Test 04/09/25 11:00 04/09/25 11:15 White Blood Count 8.8 Red Blood Count 4.56 Hemoglobin 11.6 L Hematocrit 34.6 L Mean Corpuscular Volume 75.9 L Mean Corpuscular Hemoglobin 25.4 L Mean Corpuscular Hemoglobin Concent 33.5 Red Cell Distribution Width 16.2 H Platelet Count 370 Mean Platelet Volume 8.3 Neutrophils (%) (Auto) 59.2 Lymphocytes (%) (Auto) 24.3 Monocytes (%) (Auto) 8.3 Eosinophils (%) (Auto) 7.3 H Basophils (%) (Auto) 0.9 Neutrophils # (Auto) 5.2 Lymphocytes # (Auto) 2.1 Monocytes # (Auto) 0.7 Eosinophils # (Auto) 0.6 Basophils # (Auto) 0.1 CBC Comment Sodium Level 136 Potassium Level 3.9 Chloride Level 105 Carbon Dioxide Level 25.2 Anion Gap 6 L Blood Urea Nitrogen 7 Creatinine 0.68 Estimated GFR/1.73 m2 > 90 BUN/Creatinine Ratio 10.3 Glucose Level 121 H Calcium Level 8.4 L Troponin I High Sensitivity 8 Pro-B-Type Natriuretic Peptide 103 Albumin 3.6 Chemistry Comments SARS-CoV-2 Antigen (Rapid) Negative EKG/XRAY/CT/US/VASC/MRI EKG : Additional Comment 1038 EKG interpreted to show RSR rate of 99, no ectopy. No St segment elevation. Possible lateral Q waves. QTC 456 ms. Chest X-Ray : Additional Comments [address], [facility] [id number] DIAGNOSTIC RADIOLOGY Patient: HUMBERTO PARISI Medical Record: [id number] [facility] : 1990, Age: 34 Sex: Female Location: ER Patient Status: [facility] ER Service Date/Time: 04/09/251034 Ordering Physician: BOBBY LOZADA MD Exam: CHEST,SINGLE VIEW CHEST RADIOGRAPH Indication: CP Technique: Single frontal view of the chest was obtained COMPARISON: CHEST,SINGLE VIEW on DOS: 12/29/21 FINDINGS: Lines and Tubes: None Lungs: Clear Pleura: No effusion. No pneumothorax. Cardiomediastinal contours: Unremarkable Bones: Unremarkable IMPRESSION: No acute disease. Electronically Signed by:TREY ZAIDI MD Date & Time: 04/09/251058 Dictated by: TREY ZAIDI MD Dictation date and time: 04/09/251058 Primary Care Provider: NO PRIMARY CARE PROVIDER cc: BOBBY LOZADA MD ~ Medical Decision Making Additional information obtaine: old records Findings This patient was last seen on 02/20/2025 for a Seroquel refill. Heart Score: 0 Differential Dx:Considerations: Include: other Additional Infomation Most Likely Diagnoses Asthma or reactive airway disease: Asthma commonly presents with dyspnea and cough, and symptoms may vary over time and in intensity. The absence of current cough does not exclude asthma, especially if symptoms are intermittent. Asthma is more likely if symptoms are triggered by exercise, allergens, or irritants, and less likely if there is isolated cough or chronic sputum production.[1] Community-acquired pneumonia: Pneumonia can present with dyspnea and cough, sometimes without fever or productive sputum, especially in younger adults. Diagnosis requires clinical suspicion and confirmation of a new infiltrate on imaging. Mild hypertension does not increase risk, but pneumonia should be considered if there are new respiratory symptoms and abnormal lung findings.[2] Acute bronchitis: Acute bronchitis typically presents with cough and sometimes dyspnea, but is usually self-limited. It is important to exclude pneumonia, asthma, and other causes. Bronchitis is less likely if there is no current cough, but prior episodes may suggest underlying mild asthma or chronic bronchitis.[3] Gastroesophageal reflux disease (GERD): GERD can cause chronic cough and dyspnea due to micro-aspiration or airway irritation. Atypical symptoms such as cough and dyspnea are well described, especially in the absence of classic heartburn.[4] Anxiety or panic disorder: Anxiety can manifest as dyspnea and chest discomfort, often without objective findings. Physical symptoms such as shortness of breath and palpitations are common in anxiety disorders.[5] Early or mild heart failure: Heart failure may present with dyspnea and cough, especially if there is underlying cardiac disease. Old lateral Q waves on ECG suggest prior myocardial injury, which increases risk for heart failure. Symptoms may be mild and nonspecific in early stages.[6] Most Important Not to Miss Diagnoses Pulmonary embolism (PE): PE can present with acute dyspnea and cough, sometimes without chest pain or hemoptysis. Risk factors and clinical suspicion should guide further testing (D-dimer, CT pulmonary angiography). Acute coronary syndrome (ACS): Old lateral Q waves suggest prior infarction, and ACS can present atypically, especially in women. Serial troponins and ECGs are needed to rule out ongoing ischemia.[7] Aortic dissection: Although less common in younger patients, aortic dissection can present with dyspnea and cough if there is involvement of the aortic arch or compression of adjacent structures. Imaging (CT, YEHUDA, MRI) is required for diagnosis.[8] Departure Time of Disposition: 11:54 Disposition: 01 HOME / SELF CARE / HOMELESS Impression: Primary Impression: Bronchitis Condition: Stable Discharge Instructions: Acute Bronchitis, Adult Additional Instructions: Labs all normal other than evidence of mild anemia (low hemoglobin). Discuss this with your doctor at a routine followup. You have bronchitis with wheezing likely due to a viral infection although your Covid-19 test was negative. No pneumonia on chest xray. Followup within a week with your PCP. RETURN IF WORSE. Referrals: NO PRIMARY CARE PROVIDER (PCP) Prescriptions Benzonatate* (Benzonatate*) 100 Mg Capsule 1 CAP PO Q8H for cough for 10 Days, #30 CAP Prov: ZAYNAB HICKS NP 04/09/25 Guaifenesin (Mucinex) 1,200 Mg Tbbp.12hr 1 TAB PO Q12H for cough for 15 Days, #30 TAB 0 Refills Prov: ZAYNAB HICKS NP 04/09/25 Prednisone* (Prednisone*) 20 Mg Tablet 2 TAB PO DAILY for 5 Days, #10 TAB Prov: ZAYNAB HICKS NP 04/09/25 Albuterol Sulfate (Ventolin Hfa) 90 Mcg Hfa.aer.ad 2 PUFFS INH Q4HPRN PRN for wheezing for 30 Days, #18 GM 0 Refills Prov: ZAYNAB HICKS NP 04/09/25 Education Educated: Patient Educated regarding: diagnosis, treatment, prognosis, need for follow up Signature Scribe Signature: x Attestation: The note accurately reflects work and decisions made by me.Zaynab Renee NP 04/09/25 10:49 ZAYNAB HICKS NP Apr 09, 2025 10:39
--- NOTE | 2025-04-09 10:41 | ELECTROCARDIOGRAPH REPORT ---
[facility] Test Date: 2025-04-09 Test Time: 10:38:20 Pat Name: HUMBERTO PARISI Department: EMERGENCY ROOM Room: Gender: F Hearing Officer: CHICHI : 1990 Requested By: BOBBY LOZADA Order Number: [id number] Reading MD: Dr. Elieser Delgado Measurements Intervals [place] Rate: 99 P: 88 [place]: 129 QRS: 93 QRSD: 74 T: 79 QT: 355 QTc: 456 Interpretive Statements Sinus rhythm Right atrial enlargement Borderline right axis deviation Abnormal lateral Q waves Electronically Signed On 04-12-2025 20:44:[address] Elieser Delgado Please click the below link to view image of tracing.
--- NOTE | 2025-04-09 11:02 | RADIOLOGY REPORT ---
CHEST RADIOGRAPH Indication: CP Technique: Single frontal view of the chest was obtained COMPARISON: CHEST,SINGLE VIEW on DOS: 12/29/21 FINDINGS: Lines and Tubes: None Lungs: Clear Pleura: No effusion. No pneumothorax. Cardiomediastinal contours: Unremarkable Bones: Unremarkable IMPRESSION: No acute disease.
[2025-04-09 11:13] LABS: MEAN PLATELET VOLUME 8.3 FL (7.4-10.4); RED CELL DISTRIBUTION WIDTH 16.2 % (11.5-14.5)
[2025-04-09 11:32] LABS: CREATININE 0.68 MG/DL (0.40-0.90); PRO BRAIN NATRIURETIC PEPTIDE 103 PG/ML (0-125); TOTAL CARBON DIOXIDE 25.2 MMOL/L (24-32); eCRCL 94 ML/MIN; eGFR > 90 ML/MIN
[2025-04-09] MEDS: ipratropium/albuterol 3ml nebule NEB ONE (11:34)
[2025-04-09 11:35] VITALS: PULSE 78; RESP 26; O2SAT 96
[2025-04-09 11:40] VITALS: PULSE 72; RESP 14; O2SAT 95
[2025-04-09] MEDS ORDERED: PRED20TA PO (11:55)
[2025-04-09] MEDS ORDERED: GUAI120015 PO (11:55)
[2025-04-09] MEDS ORDERED: ALBU18HF2 INH (11:55)
[2025-04-09] MEDS ORDERED: BENZ-38 PO (11:55)
[2025-04-09 12:08] VITALS: BP 138/69; PULSE 62; RESP 22; TEMP 97.5; O2SAT 94
== END 2025-04-09 12:11 | disposition home or self-care (01) ==
LOC: ER 10:30
DX: J40 Bronchitis, not specified as acute or chronic (principal); G89.29 Other chronic pain; K21.9 Gastro-esophageal reflux disease without esophagitis; F41.9 Anxiety disorder, unspecified; F12.90 Cannabis use, unspecified, uncomplicated; Z87.11 Personal history of peptic ulcer disease; Z88.0 Allergy status to penicillin; Z88.5 Allergy status to narcotic agent; Z98.890 Other specified postprocedural states; Z20.822 Contact with and (suspected) exposure to COVID-19
CPT/HCPCS: 36415; 71045; 80048; 83880; 84484; 85025; 87811; 93005; 94640; 99285; J7512; 94760; A4615